=== PATIENT | male | born 1940 | race Caucasian/White ===

== ENCOUNTER → 2018-06-25 | Outpatient (CLI) | payer SELFPAY | LOC: LAB SHORT 15:40 → LAB 15:40 | DX: L08.9 Local infection of the skin and subcutaneous tissue, unspecified (principal) | CPT/HCPCS: 87070; 87077; 87147; 87186; 87205 ==

== ENCOUNTER → 2022-09-20 | Outpatient (CLI) | payer OTHER, MEDICARE ==
[~2022-09-20] MED LIST: FISH OIL PO; TAMS.4ER PO; VITAMIN B125000 MC1 PO; VITAMIN D310 MC4 PO
[2022-09-20 11:05] LABS: BASOPHILS ABSOLUTE AUTO 0.05 K/mm3 (0.00-0.23); BASOPHILS PERCENT AUTO 1 % (0-2); EOSINOPHILS ABSOLUTE AUTO 0.07 K/mm3 (0.00-0.68); EOSINOPHILS PERCENT AUTO 1 % (0-6); Hematocrit 45.3 % (37.0-53.0); Hemoglobin 14.7 g/dL (13.5-17.5); IMMATURE GRAN ABSOLUTE AUTO 0.01 K/mm3 (0.00-0.10); IMMATURE GRAN PERCENT AUTO 0 % (0-1); LYMPHOCYTES ABSOLUTE AUTO 1.61 K/mm3 (0.84-5.20); LYMPHOCYTES PERCENT AUTO 32 % (21-46); MONOCYTES ABSOLUTE AUTO 0.46 K/mm3 (0.16-1.47); MONOCYTES PERCENT AUTO 9 % (4-13); Mean Corpuscular HGB 28.7 pg (26.0-34.0); Mean Corpuscular HGB Conc 32.5 g/dL (31.5-36.5); Mean Corpuscular Volume 89 fL (80-100); NEUTROPHILS ABSOLUTE AUTO 2.79 K/mm3 (1.96-9.15); NEUTROPHILS PERCENT AUTO 56 % (41-73); Platelet Count 243 K/mm3 (150-400); RDW Coefficient Variation 12.7 % (11.7-14.2); RDW Standard Deviation 41.8 fL (35.1-46.3); Red Blood Cell Count 5.12 M/mm3 (4.30-5.90); White Blood Cell Count 4.99 K/mm3 (4.00-11.30)
[2022-09-20 11:26] LABS: Bun/Creatinine Ratio 22.4 (12.0-20.0); Calcium, Blood 9.4 mg/dL (8.5-10.1); Creatinine, Blood 0.94 mg/dL (0.60-1.20); Potassium, Blood 4.2 mmol/L (3.5-5.5)
== END | disposition home or self-care (01) ==
LOC: LAB SHORT 10:44
PROVIDERS: Orthopaedic Surgery
DX: Z01.818 Encounter for other preprocedural examination (principal); M17.11 Unilateral primary osteoarthritis, right knee
CPT/HCPCS: 36415; 80048; 85025

== ENCOUNTER 2022-10-08 10:39 | Day surgery (SDC) | payer OTHER, MEDICARE ==
[~2022-10-08] VITALS: Ht 170.2 cm; Wt 62.0 kg
--- NOTE | 2022-10-08 12:32 | NUR ---
History, Chart, Medications and Allergies reviewed before start of procedure. Lungs clear T/O to Auscultation. Patient confirms NPO status and agrees with scheduled surgery. Pre-Op teaching done. Pt verbalizes understanding. Patient reports completing Chlorhexadine shower X2 prior to admission to hospital.
--- NOTE | 2022-10-08 19:13 | NUR ---
SHIFT SUMMARY PT ARRIVED TO ROOM SHORTLY AFTER 1600, WAS INITIALLY DROWSY BUT AFTER SHORT NAP IS AWAKE. EATING & DRINKING FLUIDS WELL. VSS.
--- NOTE | 2022-10-09 04:18 | NUR ---
POD0 FOR RIGHT TOTAL KNEE. SENSATION AND CIRCULATION REMAINS INTACT. DRESSING IS C/D/I. CRYO HAS REMAINED ON T/O THE NIGHT. VSS. PT SLEPT ON AND OFF T/O THE NIGHT. PT WAS ABLE TO AMBULATE TO THE BATHROOM MULTIPLE TIMES TO VOID. TOLLERATING PO INTAKE W/O N/V. PLAN FOR PT TO WORK WITH PT THIS AM BEFORE DC. THE PATIENT IS CURRENTLY RESTING IN BED, IN NO DISTRESS, CALL LIGHT IN REACH
[2022-10-09 04:19] LABS: BASOPHILS ABSOLUTE AUTO 0.01 K/mm3 (0.00-0.23); BASOPHILS PERCENT AUTO 0 % (0-2); EOSINOPHILS PERCENT AUTO 0 % (0-6); Hemoglobin 12.1 g/dL (13.5-17.5); IMMATURE GRAN ABSOLUTE AUTO 0.03 K/mm3 (0.00-0.10); IMMATURE GRAN PERCENT AUTO 0 % (0-1); LYMPHOCYTES ABSOLUTE AUTO 0.77 K/mm3 (0.84-5.20); LYMPHOCYTES PERCENT AUTO 6 % (21-46); MONOCYTES ABSOLUTE AUTO 1.03 K/mm3 (0.16-1.47); MONOCYTES PERCENT AUTO 8 % (4-13); Mean Corpuscular HGB 28.6 pg (26.0-34.0); Mean Corpuscular HGB Conc 32.7 g/dL (31.5-36.5); Mean Corpuscular Volume 88 fL (80-100); Mean Platelet Volume 11.1 fL (9.1-12.4); NEUTROPHILS ABSOLUTE AUTO 10.92 K/mm3 (1.96-9.15); NEUTROPHILS PERCENT AUTO 86 % (41-73); Platelet Count 217 K/mm3 (150-400); RDW Coefficient Variation 12.4 % (11.7-14.2); RDW Standard Deviation 39.9 fL (35.1-46.3); Red Blood Cell Count 4.23 M/mm3 (4.30-5.90); White Blood Cell Count 12.76 K/mm3 (4.00-11.30)
[2022-10-09 09:00] LABS: Creatinine, Blood 0.89 mg/dL (0.60-1.20); Magnesium, Blood 2.2 mg/dL (1.6-2.4); Potassium, Blood 4.5 mmol/L (3.5-5.5)
[2022-10-09] MEDS ORDERED: ACET500 PO (09:21)
[2022-10-09] MEDS ORDERED: ASPI81CH PO (09:21)
[2022-10-09] MEDS ORDERED: OXYC5 PO (09:22)
--- NOTE | 2022-10-09 09:47 | NUR ---
DISCHARGE PT HAS CLEARED THERAPY. PAIN WELL CONTROLLED. EATING, DRINKING, & VOIDING WELL. POLAR PACK SENT w/ PT. ESCORTED OUT VIA W/C. SCRIPT E-SENT BY BAUDILIO ENRIQUE.
== END 2022-10-09 07:47 | disposition home or self-care (01) ==
LOC: ORSCMMR 10:39 → ORD 14:00 → ORSCMMR 14:15 → ORD 14:15 → SURS 15:59 → ORSCMMR 10-09 07:47
PROVIDERS: Orthopaedic Surgery
PROC: 8E0Y0CZ Robotic Assisted Procedure of Lower Extremity, Open Approach (ICD-10-PCS; principal; 2022-10-08 13:30)
PROC: 0SRC0J9 Replacement of Right Knee Joint with Synthetic Substitute, Cemented, Open Approach (ICD-10-PCS; principal; 2022-10-08 13:30)
DX: M17.11 Unilateral primary osteoarthritis, right knee (principal)
CPT/HCPCS: 27447; 0055T; S2900; 36415; 73560-RT; 80048; 83735; 85025; 97110; 97116; 97161; 97530; A9270; C1713; C1776; J0171; J0690; J0735; J1100; J1885; J2250; J2405; J2704; J2795; J3010; J7120

== ENCOUNTER 2022-10-10 07:21 | Observation (INO) | payer OTHER ==
[~2022-10-10] VITALS: Ht 170.2 cm; Wt 65.4 kg
[~2022-10-10 07:21] MED LIST changes: +ACET500 PO; +ASPI81CH PO; +OXYC5 PO
[2022-10-10 08:26] LABS: BASOPHILS ABSOLUTE AUTO 0.07 K/mm3 (0.00-0.23); BASOPHILS PERCENT AUTO 1 % (0-2); EOSINOPHILS ABSOLUTE AUTO 0.16 K/mm3 (0.00-0.68); EOSINOPHILS PERCENT AUTO 1 % (0-6); Hematocrit 31.4 % (37.0-53.0); Hemoglobin 10.3 g/dL (13.5-17.5); IMMATURE GRAN ABSOLUTE AUTO 0.04 K/mm3 (0.00-0.10); IMMATURE GRAN PERCENT AUTO 0 % (0-1); LYMPHOCYTES ABSOLUTE AUTO 1.08 K/mm3 (0.84-5.20); LYMPHOCYTES PERCENT AUTO 10 % (21-46); MONOCYTES ABSOLUTE AUTO 1.39 K/mm3 (0.16-1.47); MONOCYTES PERCENT AUTO 12 % (4-13); Mean Corpuscular HGB 29.2 pg (26.0-34.0); Mean Corpuscular HGB Conc 32.8 g/dL (31.5-36.5); Mean Corpuscular Volume 89 fL (80-100); Mean Platelet Volume 11.1 fL (9.1-12.4); NEUTROPHILS ABSOLUTE AUTO 8.56 K/mm3 (1.96-9.15); NEUTROPHILS PERCENT AUTO 76 % (41-73); Platelet Count 177 K/mm3 (150-400); RDW Coefficient Variation 12.9 % (11.7-14.2); RDW Standard Deviation 41.8 fL (35.1-46.3); Red Blood Cell Count 3.53 M/mm3 (4.30-5.90)
[2022-10-10 08:33] LABS: Bun/Creatinine Ratio 26.1 (12.0-20.0); Calcium, Blood 8.4 mg/dL (8.5-10.1); Creatinine, Blood 0.92 mg/dL (0.60-1.20); Potassium, Blood 4.1 mmol/L (3.5-5.5)
--- NOTE | 2022-10-11 04:29 | NUR ---
SHIFT SUMMARY; NO ACUTE CHANGES OVERNIGHT. PT SLEPT IN BED FOR THE ENTIRETY OF THE NIGHT. PT REMAINS ON TELE, NSR IN THE 80/90'S. NS REMAINS RUNNING AT 150MLS AN HOUR. THE PT IS ALERT AND ORIENTATED AND PLEASANT THIS SHIFT. THE PT REPORTS VERY MILD PAIN ASSOCIATED WITH HIS R KNEE THIS PM. THE PT ROUTINELY ICED HIS R KNEE T/O THE NIGHT. CURRENTLY THE PT IS SLEEPING WITH THE BED IN THE LOWEST POSITION AND THE CALL LIGHT AT BEDSIDE.
[2022-10-11 05:52] LABS: Hematocrit 28.5 % (37.0-53.0); Hemoglobin 9.4 g/dL (13.5-17.5); Mean Corpuscular HGB 29.2 pg (26.0-34.0); Mean Corpuscular Volume 89 fL (80-100); Mean Platelet Volume 11.7 fL (9.1-12.4); Platelet Count 165 K/mm3 (150-400); RDW Coefficient Variation 12.8 % (11.7-14.2); Red Blood Cell Count 3.22 M/mm3 (4.30-5.90); White Blood Cell Count 6.93 K/mm3 (4.00-11.30)
[2022-10-11 06:19] LABS: Bun/Creatinine Ratio 20.9 (12.0-20.0); Calcium, Blood 8.3 mg/dL (8.5-10.1); Creatinine, Blood 0.81 mg/dL (0.60-1.20); Potassium, Blood 4.1 mmol/L (3.5-5.5)
--- NOTE | 2022-10-11 18:38 | NUR ---
DISCHARGE SUMMARY PATIENT HAS HAD NO ACUTE EVENTS THIS SHIFT. VITAL SIGNS REVIEWED. PATIENT HAS NOT COMPLAINED OF PAIN, NAUSEA, SOB OR VOMITTING. PATIENT IS BEING DISCHARGED TO FRIENDS HOUSE. FRIEND IS DRIVING PATIENT HOME.
== END 2022-10-11 18:39 | disposition home or self-care (01) ==
LOC: ER 07:21 → ERHOLD 07:22 → MEDS 17:24
PROVIDERS: Nurse Practitioner Acute Care; Student in an Organized Health Care Education/Training Program; ADMIT Internal Medicine
DX: R55 Syncope and collapse (principal); N40.0 Benign prostatic hyperplasia without lower urinary tract symptoms; M19.90 Unspecified osteoarthritis, unspecified site; D64.9 Anemia, unspecified; Z96.651 Presence of right artificial knee joint; Z88.0 Allergy status to penicillin; Z79.82 Long term (current) use of aspirin; Z79.899 Other long term (current) drug therapy
CPT/HCPCS: 36415; 71046; 73560-RT; 80048; 82947; 83735; 83880; 84484; 85025; 85027; 93005; 93010; 96360; 96361; 96372; 99285-25; A9270; G0378; J1650; J7030

== ENCOUNTER 2023-07-19 05:49 | Day surgery (SDC) | payer OTHER ==
[~2023-07-19] VITALS: Ht 167.6 cm; Wt 60.8 kg
[2023-07-19] VITALS (11 sets, daily range): BP systolic 98–126; BP diastolic 58–71
--- NOTE | 2023-07-19 07:28 | NUR ---
PRE-OP NOTE PT A&OX4, BREATHING RA, CALM. Ambulatory in Day Surgery Patient confirms NPO status and agrees with scheduled surgery. Pre-Op teaching done. Pt verbalizes understanding. Patient States Post-Procedure ride home has been arranged.
--- NOTE | 2023-07-19 10:10 | NUR ---
PT TO DAY SURGERY STEP DOWN. PT AWAKE, ALERT AND ORIENTED. ABLE TO MOVE SELF IN BED. PT HAS NO COMPLAINTS. SURGICAL SITE-3 INCISIONS ACROSS ABDOMENT CLOSED WITH DERMABOND, ARE C/D/I. THERE IS ONE SMALL "ALLIE" ON LOWER ABD THAT IS ALSO C/D/I. PT DENIES PAIN, REQUESTS WATER.
--- NOTE | 2023-07-19 10:25 | NUR ---
PT TOLERATING PO FLUIDS WELL, DECLINES CRACKERS THIS TIME. INCISION SITES REMAIN C/D/I; PT SHOWN SITES WELL. ICE PACK GIVEN.
--- NOTE | 2023-07-19 10:52 | NUR ---
YOGURT GIVEN TO PT PER REQUEST. PT FEELING WELL, BUT STATES HE FEELS HE CANNOT GO HOME YET HE FEELS HE WOULD BE TOO DIZZY STANDING.
--- NOTE | 2023-07-19 10:53 | NUR ---
NO CHANGE IN INCISION SITES.
--- NOTE | 2023-07-19 11:19 | NUR ---
Discharge instructions reviewed with patient. Patient verbalizes understanding. Copy given to patient to take home. Patient States Post-Procedure ride home has been arranged.
--- NOTE | 2023-07-19 11:23 | NUR ---
Discharged via wheelchair to private car for ride home.
== END 2023-07-19 11:25 | disposition home or self-care (01) ==
LOC: ORSCMMR 05:49 → ORD 07:30 → ORSCMMR 11:25 → ORD 08-16 07:30
PROVIDERS: Surgery
PROC: 8E0W4CZ Robotic Assisted Procedure of Trunk Region, Percutaneous Endoscopic Approach (ICD-10-PCS; principal; 2023-07-19 07:30)
PROC: 0YU54JZ Supplement Right Inguinal Region with Synthetic Substitute, Percutaneous Endoscopic Approach (ICD-10-PCS; principal; 2023-07-19 07:30)
PROC: 3E0M45Z Introduction of Adhesion Barrier into Peritoneal Cavity, Percutaneous Endoscopic Approach (ICD-10-PCS; principal; 2023-07-19 07:30)
DX: K40.30 Unilateral inguinal hernia, with obstruction, without gangrene, not specified as recurrent (principal); K40.90 Unilateral inguinal hernia, without obstruction or gangrene, not specified as recurrent; Z87.891 Personal history of nicotine dependence; N40.0 Benign prostatic hyperplasia without lower urinary tract symptoms; J44.9 Chronic obstructive pulmonary disease, unspecified; I10 Essential (primary) hypertension; Z79.899 Other long term (current) drug therapy
CPT/HCPCS: C1781; J0690; J1100; J2371; J2405; J2704; J3010; J7120